=== PATIENT | female | born 1980 | race Two or more races ===

== ENCOUNTER 2023-02-20 02:48 | Emergency (ER) | payer BC, MEDICAID, OTHER ==
[~2023-02-20] VITALS: Ht 167.6 cm; Wt 89.8 kg
[2023-02-20 06:09] VITALS: BP 120/84; TEMP 98.1; O2SAT 98
== END 2023-02-20 06:09 | disposition left against medical advice (07) ==
LOC: ER 02:55
DX: J06.9 Acute upper respiratory infection, unspecified (principal)